=== PATIENT | female | born 1975 | race Caucasian/White ===

== ENCOUNTER 2018-07-26 21:36 | Inpatient (IN) | payer OTHER ==
[2018-07-26 23:47] LABS: Glucose,Whole Blood 98 mg/dL (75-99)
[2018-07-27] MEDS ORDERED: SODIUM CHLORIDE 0.9% 1,000 ML IV SCH (00:30)
[2018-07-27] MEDS ORDERED: ALPRAZolam 0.25 MG TAB PO PRN (00:32)
[2018-07-27 00:33] LABS: Anisocytosis Moderate; Hypochromasia Marked; MCH 20.9 pg (25.0-35.0); MCHC 28.7 g/dL (31.0-37.0); MCV 72.6 fL (80.0-100.0); Mean Platelet Volume 7.8; Microcytosis Marked; Platelet Count 374 k/uL (150-450); Poikilocytosis Marked; RBC 2.57 m/uL (3.80-5.40); RDW 23.2 % (11.5-15.5)
[2018-07-27 00:42] LABS: ALT 21 U/L (9-52); AST 22 U/L (14-36); Albumin 3.7 g/dL (3.5-5.0); Alkaline Phosphatase 63 U/L (38-126); Anion Gap 8 mmol/L; Blood Urea Nitrogen 11 mg/dL (7-17); Calcium 8.9 mg/dL (8.4-10.2); Carbon Dioxide 21 mmol/L (22-30); Chloride 109 mmol/L (98-107); Glucose 90 mg/dL (74-99); Potassium 3.9 mmol/L (3.5-5.1); Sodium 138 mmol/L (137-145); Total Protein 6.5 g/dL (6.3-8.2)
[2018-07-27] MEDS: ACETAMINOPHEN TAB 325 MG TAB PO PRN (01:17)
[2018-07-27 01:18] LABS: HCT 18.7 % (34.0-46.0); HGB 5.4 gm/dL (11.4-16.0)
[2018-07-27] MEDS ORDERED: FUROSEMIDE 10 MG/ML 2 ML VIAL IV ONE (02:00)
[2018-07-27 05:11] LABS: Band Neutrophils % 1 %; Monocytes # (M) 0.34 k/uL (0-1.0); Neutrophils % (M) 71 %; Nucleated Red Blood Cells 2 /100 WBC (0-0); Total Cells Counted 200
[2018-07-27 05:12] LABS: Lymphocytes # (M) 1.61 k/uL (1.0-4.8); WBC 6.7 k/uL (3.8-10.6)
[2018-07-27 05:15] LABS: Mixed Population RBC Present; Polychromasia Present
[2018-07-27] MEDS: LEVOTHYROXINE 112 MCG TAB PO SCH (06:07)
--- NOTE | 2018-07-27 07:47 | P.HPIM ---
History of Present Illness This is a pleasant 41 years old female who presents because of severe anemia and prolonged history of vaginal bleeding. Patient originally admitted to [facility] with low hemoglobin around 3.1-3.6. She was in the ICU. However there was no [facility] service and patient eventually transferred to [facility]. Patient states that she has prolonged history of menstrual irregularity and bleeding per vagina since she was age 16. At that time they started her on pills which help control her. Even before become sexually active. She is a mother of 2, last one was about 2 years old. Since then she has IUD, which was removed by her door maker due to hives she was experiencing for 3 months following that she didn't have a period, and her doctor could not prescribe her OCP because she was smoking cigarettes. Over the last 5-6 months patient started to having irregular menstrual periods for example she was bleeding the hole March, and the toe continued to bleed with this portends as an average like once or twice a week with merely large clots. Patient could not follow up with medical [facility] because she lost her job and her insurance. And she got her insurance back recently. Patient also was experiencing exertional dyspnea mostly related to her severe anemia which got worse over the last week. Her last episode of the bleeding was about 2-3 days prior to admission. She has few spotting one day prior to admission. However she become more and severely dyspneic on minimal exertion and she decided to come to emergency room. At [facility] her hemoglobin find to be 3.6, and repeat one was 3.1. Patient received 4 units of blood transfusion. Her repeat hemoglobin is 5.4. Risks of CBC within normal including platelets. INR was within normal limits at [facility], BMP was unremarkable. Vitas is stable, afebrile Review of Systems CONSTITUTIONAL: No fever, no malaise, no fatigue. HEENT: No recent visual problems or hearing problems. Denied any sore throat. CARDIOVASCULAR: No orthopnea, PND, no palpitations, no syncope. PULMONARY: No shortness of breath, no cough, no hemoptysis. GASTROINTESTINAL: No diarrhea, no nausea, no vomiting, no abdominal pain. Normoactive bowel sounds. NEUROLOGICAL: No headaches, no weakness, no numbness. HEMATOLOGICAL: Denies any bleeding or petechiae. GENITOURINARY: Denies any burning micturition, frequency, or urgency. MUSCULOSKELETAL/RHEUMATOLOGICAL: Denies any joint pain, swelling, or any muscle pain. ENDOCRINE: Denies any polyuria or polydipsia. Past Medical History Past Medical History: Thyroid Disorder Additional Past Medical History / Comment(s): Uterine bleeding History of Any Multi-Drug Resistant Organisms: None Reported Additional Past Surgical History / Comment(s): LEAP procedure Past Anesthesia/Blood Transfusion Reactions: No Reported Reaction Past Psychological History: No Psychological Hx Reported Smoking Status: Former smoker Past Alcohol Use History: Occasional Past Drug Use History: Marijuana - Past Family History Father Family Medical History: Hypertension, Myocardial Infarction ([place]) Additional Family Medical History / Comment(s): Aneurism Medications and Allergies Home Medications Medication Instructions Recorded Confirmed Type Levothyroxine Sodium [Levoxyl] 112 mcg PO DAILY 07/27/18 07/27/18 History Allergies Allergy/AdvReac Type Severity Reaction Status Date / Time No Known Allergies Allergy Verified 07/26/18 23:28 Physical Exam Vitals: Vital Signs Temp Pulse Resp BP Pulse Ox 07/27/18 06:11 97.7 F 66 10 L 107/67 07/27/18 06:01 97.5 F L 66 13 118/76 07/27/18 05:50 97.5 F L 76 10 L 112/70 07/27/18 05:00 69 5 L 94/55 95 07/27/18 04:08 98.3 F 78 17 94/55 07/27/18 04:00 98.3 F 73 17 111/60 97 07/27/18 03:38 98.0 F 84 11 L 111/60 07/27/18 03:30 85 8 L 105/63 97 07/27/18 03:28 98.1 F 85 14 105/63 07/27/18 03:00 86 17 07/27/18 02:30 91 22 07/27/18 02:00 88 17 115/59 07/27/18 01:30 86 17 124/68 07/27/18 01:00 78 9 L 131/79 98 07/27/18 00:30 85 11 L 118/71 99 07/27/18 00:00 98.2 F 84 10 L 130/72 97 Intake and Output 07/26/18 07/26/18 07/27/18 14:59 22:59 06:59 Intake Total 430 Output Total 300 Balance 130 Intake: IV 120 Sodium Chloride 0.9% 1, 120 000 ml @ 20 mls/hr IV . Q24H [facility] Rx#:[id number] Blood Product 310 Rc As-1 Unit 0 [id number] Rc Pheresis 2 As3 Unit 310 [id number] Output: Urine 300 Other: Voiding Method Toilet Weight 77.9 kg GENERAL: The patient is alert and oriented x3, not in any acute distress. Well developed, well nourished. HEENT: Pupils are round and equally reacting to light. EOMI. No scleral icterus. No conjunctival pallor. Normocephalic, atraumatic. No pharyngeal erythema. No thyromegaly. CARDIOVASCULAR: S1 and S2 present. No murmurs, rubs, or gallops. PULMONARY: Chest is clear to auscultation, no wheezing or crackles. ABDOMEN: Soft, nontender, nondistended, normoactive bowel sounds. No palpable organomegaly. MUSCULOSKELETAL: No joint swelling or deformity. EXTREMITIES: No cyanosis, clubbing, or pedal edema. NEUROLOGICAL: Gross neurological examination did not reveal any focal deficits. SKIN: No rashes. Results CBC & Chem 7: 07/27/18 00:20 07/27/18 00:20 Labs: Abnormal Lab Results - Last 24 Hours (Table) 07/27/18 07/27/18 07/27/18 Range/Units 00:15 00:20 00:20 RBC 2.57 L (3.80-5.40) m/uL Hgb 5.4 L* (11.4-16.0) gm/dL Hct 18.7 L* (34.0-46.0) % MCV 72.6 L (80.0-100.0) fL MCH 20.9 L (25.0-35.0) pg MCHC 28.7 L (31.0-37.0) g/dL RDW 23.2 H (11.5-15.5) % Nucleated RBCs 2 H (0-0) /100 WBC Chloride 109 H (98-107) mmol/L Carbon Dioxide 21 L (22-30) mmol/L Crossmatch See Detail Thrombosis Risk Factor Assmnt - Choose All That Apply Each Factor Represents 1 point: Age 41-60 years Thrombosis Risk Factor Assessment Total Risk Factor Score: 1 Thrombosis Risk Factor Assessment Level: Low Risk Assessment and Plan Assessment: Prolonged irregular vaginal bleeding Severe anemia on admission mostly acute blood loss anemia Exertional dyspnea, mostly related to above. Resolving History of cigarette smoking, quit about 6 weeks prior to admission as per patient. History of hypothyroidism Plan: This is a pleasant 43 years old female who presents because of severe anemia secondary to vaginal bleeding. [employer] consult. Critical care consult. Transfuse blood as needed. Keep hemoglobin more than 7. Start iron pills. Labs and medication were reviewed.. Continue same treatment. Continue with symptomatic treatment. Resume home medication. Monitor lytes and vitals. DVT and GI prophylaxis. Further recommendations of the clinical course of the patient DVT prophylaxis: non heparin and in view of severe anemia and bleeding GI Prophylaxis: Protonix Prognosis is guarded
[2018-07-27] MEDS ORDERED: PANTOPRAZOLE 40 MG/10 ML VIAL IV SCH (09:00)
--- NOTE | 2018-07-27 09:55 | XR ---
EXAMINATION TYPE: XR chest 1V DATE OF EXAM: 07/27/2018 COMPARISON: NONE HISTORY: Dyspnea TECHNIQUE: Single frontal view of the chest is obtained. FINDINGS: There is no focal air space opacity, pleural effusion, or pneumothorax seen. The cardiac silhouette size is within normal limits. The osseous structures are intact. There are overlying car diac leads. IMPRESSION: No acute process.
--- NOTE | 2018-07-27 10:50 | US ---
EXAMINATION TYPE: US transvaginal DATE OF EXAM: 07/27/2018 COMPARISON: NONE CLINICAL HISTORY: uterine bleeding. TECHNIQUE: . Transvaginal sonographic images of the pelvis were acquired. Date of LMP: About 5 months ago EXAM MEASUREMENTS: Uterus: 7.7 x 4.0 x 4.9 cm Endometrial Stripe: Not well-defined. Right Ovary: 3.5 x 2.8 x 2.1 cm Left Ovary: 2.0 x 1.7 x 1.3 cm 1. Uterus: Anteverted Heterogeneous echotexture 2. Endometrium: Suggestion of possible thickening 3. Right Ovary: Cystic area visualized measuring 2.8 x 1.6 x 1.6 cm, minimal septation may be presen t may be artifactual 4. Left Ovary: Multiple echogenic foci visualized 5. Bilateral Adnexa: wnl 6. Posterior cul-de-sac: wnl Grayscale, color Doppler imaging performed. IMPRESSION: Endometrial stripe thickness is not well-defined and may be increased, MRI could be perfo rmed for better evaluation. There may be underlying fibroid uterus. Consider biopsy. Right ovarian cy stic lesion, consider follow-up.
[2018-07-27 11:02] VITALS: BMI 31.4
[2018-07-27 11:46] LABS: INR 0.9 (<1.2); Prothrombin Time 10.1 sec (9.0-12.0)
[2018-07-27 11:48] LABS: ALT 14 U/L (9-52); AST 20 U/L (14-36); Albumin 3.7 g/dL (3.5-5.0); Alkaline Phosphatase 55 U/L (38-126); Anion Gap 7 mmol/L; Blood Urea Nitrogen 12 mg/dL (7-17); Calcium 8.6 mg/dL (8.4-10.2); Carbon Dioxide 24 mmol/L (22-30); Chloride 108 mmol/L (98-107); Glucose 85 mg/dL (74-99); Magnesium 2.2 mg/dL (1.6-2.3); Phosphorus 3.4 mg/dL (2.5-4.5); Potassium 4.1 mmol/L (3.5-5.1); Sodium 139 mmol/L (137-145); Total Bilirubin 1.6 mg/dL (0.2-1.3); Total Protein 6.6 g/dL (6.3-8.2)
[2018-07-27 11:55] LABS: Anisocytosis Moderate; HCT 25.2 % (34.0-46.0); Hypochromasia Marked; MCH 23.8 pg (25.0-35.0); MCHC 31.2 g/dL (31.0-37.0); MCV 76.2 fL (80.0-100.0); Mean Platelet Volume 7.1; Microcytosis Moderate; Platelet Count 391 k/uL (150-450); Poikilocytosis Marked; RBC 3.31 m/uL (3.80-5.40)
--- NOTE | 2018-07-27 11:56 | P.CNPUL ---
History of Present Illness Consult date: 07/27/18 Requesting physician: Kenton Nance Reason for consult: dyspnea (Critical care management) Chief complaint: Vaginal bleeding, shortness of breath History of present illness: This is a very pleasant 43-year-old female patient who has a history of hypothyroidism, previous smoker, occasional marijuana use. She also has a history of abnormal uterine bleeding and she was unable to be on oral control pills because she was smoking at that time. She had a intrauterine device placed and subsequently removed by her care transition mgr after developing hives. Following removal she did not have a period for 3 months. Recently she did start having episodes of large clots. She had not been following with the physician due to loss of insurance. She continued to have episodes of bleeding and subsequently developed significant dyspnea on minimal exertion and presented to [facility] yesterday for the same. She was found to have a hemoglobin of 3.6 and 3.1 and was admitted to the intensive care unit there. She received 2 units of packed red blood cells. There is no animal surgeon on staff there and she was subsequently transferred here to the intensive care unit. The hemoglobin was 5.4 and she has received 2 more units of packed red blood cells. He is seen today in consultation. She is awake and alert in no acute distress. She states she is much less short of breath following her blood transfusions. She is stronger and his minimal bleeding currently. She is maintaining good O2 saturations in the upper 90s on room air. She's been afebrile. Hemodynamically stable. No chest pain or palpitations. She did receive 20 mg of IV Lasix following the blood transfusion. She has 0.9 normal saline at 20 ML's per hour. Chest x-ray reveals no acute pulmonary process. Transvaginal ultrasound revealed endometrial stripe thickness is not well defined and maybe increase. There may be underlying fibroid uterus. Right ovarian cystic lesion. Gynecology consult pending. Follow-up hemoglobin pending. Review of Systems Constitutional: Reports weakness Eyes: denies blurred vision, denies decreased vision Ears: deny: decreased hearing Ears, nose, mouth and throat: Denies headache, Denies sore throat Cardiovascular: Reports dyspnea on exertion, Reports shortness of breath Respiratory: Reports dyspnea Gastrointestinal: Reports bloating Genitourinary: Reports abnormal vaginal bleeding Menstruation: Reports period heavy Musculoskeletal: Denies myalgias Integumentary: Denies pruritus, Denies rash Neurological: Denies numbness, Denies weakness Psychiatric: Denies anxiety, Denies depression Endocrine: Denies fatigue, Denies weight change Hematologic/Lymphatic: Reports as per HPI Allergic/Immunologic: Reports as per HPI Past Medical History Past Medical History: Thyroid Disorder Additional Past Medical History / Comment(s): Uterine bleeding History of Any Multi-Drug Resistant Organisms: None Reported Additional Past Surgical History / Comment(s): IUD implant and subsequent removal, LEEP procedure Past Anesthesia/Blood Transfusion Reactions: No Reported Reaction Past Psychological History: No Psychological Hx Reported Smoking Status: Former smoker Past Alcohol Use History: Occasional Past Drug Use History: Marijuana - Past Family History Father Family Medical History: Hypertension, Myocardial Infarction ([place]) Additional Family Medical History / Comment(s): Aneurism Medications and Allergies Home Medications Medication Instructions Recorded Confirmed Type Acetaminophen Tab [Tylenol] 350 mg PO Q8HR 07/27/18 07/27/18 History Levothyroxine Sodium [Levoxyl] 112 mcg PO DAILY 07/27/18 07/27/18 History Multivitamins, Thera [Multivitamin 1 tab PO DAILY 07/27/18 07/27/18 History (formulary)] Ranitidine HCl [Zantac] 75 mg PO DAILY 07/27/18 07/27/18 History Allergies Allergy/AdvReac Type Severity Reaction Status Date / Time No Known Allergies Allergy Verified 07/27/18 07:47 Physical Exam Vitals: Vital Signs Temp Pulse Resp BP Pulse Ox 07/27/18 10:00 68 17 114/71 97 07/27/18 09:00 78 16 109/79 97 07/27/18 08:20 98.2 F 75 11 L 108/79 98 07/27/18 08:10 75 19 114/75 99 07/27/18 08:00 71 19 125/85 99 07/27/18 07:50 75 12 125/85 98 07/27/18 07:40 71 18 120/75 98 07/27/18 07:30 79 12 119/66 98 07/27/18 07:20 93 16 85/69 97 07/27/18 07:10 70 15 101/59 96 07/27/18 07:00 64 16 106/64 96 07/27/18 06:41 97.9 F 69 17 106/64 07/27/18 06:11 97.7 F 66 10 L 107/67 07/27/18 06:01 97.5 F L 66 13 118/76 07/27/18 06:00 67 30 H 121/80 97 07/27/18 05:50 97.5 F L 76 10 L 112/70 07/27/18 05:00 69 5 L 94/55 95 07/27/18 04:08 98.3 F 78 17 94/55 07/27/18 04:00 98.3 F 73 17 111/60 97 07/27/18 03:38 98.0 F 84 11 L 111/60 07/27/18 03:30 85 8 L 105/63 97 07/27/18 03:28 98.1 F 85 14 105/63 07/27/18 03:00 86 17 07/27/18 02:30 91 22 07/27/18 02:00 88 17 115/59 07/27/18 01:30 86 17 124/68 07/27/18 01:00 78 9 L 131/79 98 07/27/18 00:30 85 11 L 118/71 99 07/27/18 00:00 98.2 F 84 10 L 130/72 97 Intake and Output 07/26/18 07/27/18 07/27/18 22:59 06:59 14:59 Intake Total 450 1021 Output Total 1600 600 Balance -1150 421 Intake: IV 140 60 Sodium Chloride 0.9% 1, 140 60 000 ml @ 20 mls/hr IV . Q24H [facility] Rx#:[id number] Oral 300 Blood Product 310 661 As-1 Unit 0 310 [id number] Rc Pheresis 2 As3 Unit 310 [id number] Output: Urine 1600 600 Other: Voiding Method Toilet Toilet Weight 77.9 kg 77.9 kg - Constitutional General appearance: average body habitus, no acute distress - EENT Eyes: EOMI, PERRLA ENT: hearing grossly normal Ears: bilateral: normal - Neck Neck: normal ROM Carotids: bilateral: upstroke normal Thyroid: bilateral: normal size - Respiratory Respiratory: bilateral: CTA - Cardiovascular Rhythm: regular Heart sounds: normal: S1, S2 - Gastrointestinal General gastrointestinal: normal bowel sounds - Integumentary Integumentary: normal turgor - Neurologic Neurologic: CNII-XII intact - Musculoskeletal Musculoskeletal: generalized weakness - Psychiatric Psychiatric: A&O x's 3, appropriate affect, intact judgment & insight Results - Laboratory Findings CBC and BMP: 07/27/18 00:20 07/27/18 00:20 Abnormal lab findings: Abnormal Labs 07/27/18 07/27/18 07/27/18 00:15 00:20 00:20 RBC 2.57 L Hgb 5.4 L* Hct 18.7 L* MCV 72.6 L MCH 20.9 L MCHC 28.7 L RDW 23.2 H Nucleated RBCs 2 H Chloride 109 H Carbon Dioxide 21 L Crossmatch See Detail - Diagnostic Findings Chest x-ray: image reviewed (No acute pulmonary process) Assessment and Plan Assessment: Impression: #1 Abnormal vaginal bleeding of unclear etiology. History of IUD and subsequent removal. History of LEEP procedure. #2 Acute anemia secondary to above. Status post 4 units packed red blood cell transfusion. Follow-up hemoglobin pending. #3 Hypothyroidism. #4 Remote history of chronic tobacco dependence. #5 Marijuana use. Plan: The patient was seen and evaluated by Dr. Gonzalez. She is currently stable from the pulmonary and critical care standpoint. He was dynamically stable. Not requiring pressor support. When she is seen by gynecological services she'll be transferred out of the intensive care unit. Follow-up hemoglobin pending. We'll continue to follow and make further recommendations based on her clinical status. I, the cosigning physician, performed a history & physical examination of the patient. Lungs sounds are clear. Maintaining good O2 saturations in the 90s on room air. I discussed the assessment and plan of care with my nurse practitioner, Mimi Mason. I attest to the above note as dictated by her. Time with Patient: Greater than 30
[2018-07-27 11:58] LABS: HGB 7.9 gm/dL (11.4-16.0)
--- NOTE | 2018-07-27 13:04 | P.OBCN ---
History of Present Illness Consult date: 07/27/18 Reason for consult: menorrhagia Chief complaint: Fatigue, shortness of breath, and dysfunctional uterine bleeding History of present illness: This patient is a 43-year-old 2 para [address] patient of [address] Webb's from [facility] with a approximately 1-1/2 year history of dysfunctional uterine bleeding. Patient states that she had her last baby approximately 2 years ago and she had a Mirena IUD placed. Patient was having spotting and bleeding on and off with the IUD and Dr. Webb then removed IUD. Patient did not have a period for approximately 3 months after this, but then began having intermittent heavy bleeding. Patient states that she did discuss a possible endometrial ablation with Dr. Webb at this time. There was however a lapse in her insurance. Patient states that she has intermittent heavy bleeding. She knew that she was anemic and went to the health department and at that time they checked her hemoglobin and it was low and they told her to go to [facility]. Patient was admitted there are with a hemoglobin in the 3-4 range and given 2 units of blood. She was subsequently transferred to the [facility] for further evaluation and treatment. Patient's hemoglobin here on admission was 5.4 and she has subsequent received 2 units of blood and is now 7.9. She is not having a lot of vaginal bleeding at this time just a small amount of dark red blood. Pelvic ultrasound is done which shows a not well defined endometrial stripe but may be increased. She has a physiologic 2.8 cm cyst in the right ovary. Patient's past gynecologic history is significant for 2 vaginal deliveries the last one approximately [address] [facility]. She also had a LEEP of the cervix in the remote past as well. Review of Systems Genitourinary: Reports as per HPI, Reports abnormal vaginal bleeding Menstruation: Reports as per HPI Past Medical History Past Medical History: Thyroid Disorder Additional Past Medical History / Comment(s): Uterine bleeding History of Any Multi-Drug Resistant Organisms: None Reported Additional Past Surgical History / Comment(s): IUD implant and subsequent removal, LEEP procedure Past Anesthesia/Blood Transfusion Reactions: No Reported Reaction Past Psychological History: No Psychological Hx Reported Smoking Status: Former smoker Past Alcohol Use History: Occasional Past Drug Use History: Marijuana - Past Family History Father Family Medical History: Hypertension, Myocardial Infarction ([place]) Additional Family Medical History / Comment(s): Aneurism Medications and Allergies Home Medications Medication Instructions Recorded Confirmed Type Acetaminophen Tab [Tylenol] 350 mg PO Q8HR 07/27/18 07/27/18 History Levothyroxine Sodium [Levoxyl] 112 mcg PO DAILY 07/27/18 07/27/18 History Multivitamins, Thera [Multivitamin 1 tab PO DAILY 07/27/18 07/27/18 History (formulary)] Ranitidine HCl [Zantac] 75 mg PO DAILY 07/27/18 07/27/18 History Allergies Allergy/AdvReac Type Severity Reaction Status Date / Time No Known Allergies Allergy Verified 07/27/18 07:47 Exam Vital Signs Temp Pulse Resp BP Pulse Ox 07/27/18 12:00 98.4 F 70 18 122/82 98 07/27/18 11:00 72 19 119/71 97 07/27/18 10:00 68 17 114/71 97 07/27/18 09:00 78 16 109/79 97 07/27/18 08:20 98.2 F 75 11 L 108/79 98 07/27/18 08:10 75 19 114/75 99 07/27/18 08:00 71 19 125/85 99 07/27/18 07:50 75 12 125/85 98 07/27/18 07:40 71 18 120/75 98 07/27/18 07:30 79 12 119/66 98 07/27/18 07:20 93 16 85/69 97 07/27/18 07:10 70 15 101/59 96 07/27/18 07:00 64 16 106/64 96 07/27/18 06:41 97.9 F 69 17 106/64 07/27/18 06:11 97.7 F 66 10 L 107/67 07/27/18 06:01 97.5 F L 66 13 118/76 07/27/18 06:00 67 30 H 121/80 97 07/27/18 05:50 97.5 F L 76 10 L 112/70 07/27/18 05:00 69 5 L 94/55 95 07/27/18 04:08 98.3 F 78 17 94/55 07/27/18 04:00 98.3 F 73 17 111/60 97 07/27/18 03:38 98.0 F 84 11 L 111/60 07/27/18 03:30 85 8 L 105/63 97 07/27/18 03:28 98.1 F 85 14 105/63 07/27/18 03:00 86 17 07/27/18 02:30 91 22 07/27/18 02:00 88 17 115/59 07/27/18 01:30 86 17 124/68 07/27/18 01:00 78 9 L 131/79 98 07/27/18 00:30 85 11 L 118/71 99 07/27/18 00:00 98.2 F 84 10 L 130/72 97 Intake and Output 07/26/18 07/27/18 07/27/18 22:59 06:59 14:59 Intake Total 450 1021 Output Total 1600 600 Balance -1150 421 Intake: IV 140 60 Sodium Chloride 0.9% 1, 140 60 000 ml @ 20 mls/hr IV . Q24H [facility] Rx#:[id number] Oral 300 Blood Product 310 661 Rc As-1 Unit 0 310 [id number] Rc Pheresis 2 As3 Unit 310 [id number] Output: Urine 1600 600 Other: Voiding Method Toilet Toilet Weight 77.9 kg 77.9 kg Patient is in the ICU and therefore pelvic exam is not performed. I did look at the patient's perineum and she has a pad on which has a scant amount of dark red blood. The nurse informs me that she's gone through 1 pad all morning long. Results Result Diagrams: 07/27/18 10:37 07/27/18 10:37 Abnormal Lab Results - Last 24 Hours (Table) 07/27/18 07/27/18 07/27/18 Range/Units 00:15 00:20 00:20 RBC 2.57 L (3.80-5.40) m/uL Hgb 5.4 L* (11.4-16.0) gm/dL Hct 18.7 L* (34.0-46.0) % MCV 72.6 L (80.0-100.0) fL MCH 20.9 L (25.0-35.0) pg MCHC 28.7 L (31.0-37.0) g/dL RDW 23.2 H (11.5-15.5) % Nucleated RBCs 2 H (0-0) /100 WBC Chloride 109 H (98-107) mmol/L Carbon Dioxide 21 L (22-30) mmol/L Total Bilirubin (0.2-1.3) mg/dL Crossmatch See Detail 07/27/18 07/27/18 Range/Units 10:37 10:37 RBC 3.31 L (3.80-5.40) m/uL Hgb 7.9 L D (11.4-16.0) gm/dL Hct 25.2 L (34.0-46.0) % MCV 76.2 L (80.0-100.0) fL MCH 23.8 L (25.0-35.0) pg MCHC (31.0-37.0) g/dL RDW 21.0 H (11.5-15.5) % Nucleated RBCs (0-0) /100 WBC Chloride 108 H (98-107) mmol/L Carbon Dioxide (22-30) mmol/L Total Bilirubin 1.6 H (0.2-1.3) mg/dL Crossmatch Assessment and Plan Assessment: It is my impression that this is a pleasant 43-year-old 2 para 2 female with what appears to be chronic dysfunctional bleeding and secondary anemia. Patient is not acutely bleeding at this time and she is responded appropriately to blood transfusion. Patient has been here since midnight last night without significant bleeding. Patient is already established with Dr. Webb and she has discussed possible surgical intervention via an endometrial ablation. She and I also discussed hormonal treatment at this time, she states that she is no longer smoking. I'm still not comfortable placing her on oral contraceptives however we did discuss progesterone therapy and she would like to go on Provera at this time. I recommended that she get an endometrial biopsy as an outpatient and then she should strongly consider proceeding with an endometrial ablation. She would have to do something reliable for control and have a normal endometrial biopsy if she chose this method of treatment. Hysterectomy is not indicated at this time because she has not tried any other less invasive procedures, however if she fails other conservative treatments this certainly would have to be considered. Patient has indicated to me that she will follow up with Dr. Webb as an outpatient, obviously she is always welcome to follow- up with us if necessary. We are going to start Provera 10 mg by mouth daily and she should continue this as an outpatient. I would suggest follow-up with her primary CHARGE ENTRY within the next 7 days to arrange an endometrial biopsy and further treatment. Thank you very much for this consultation. (1) Dysfunctional uterine bleeding Current Visit: Yes Status: Acute Code(s): N93.8 - OTHER SPECIFIED ABNORMAL UTERINE AND VAGINAL BLEEDING SNOMED Code(s): 45145587 (2) Chronic anemia Current Visit: Yes Status: Acute Code(s): D64.9 - ANEMIA, UNSPECIFIED SNOMED Code(s): 035234359
[2018-07-27 14:05] LABS: Band Neutrophils % 5 %; Basophils # (M) 0.06 k/uL (0-0.2); Eosinophils # (M) 0.19 k/uL (0-0.7); Metamyelocytes # (M) 0.06 k/uL (0); Metamyelocytes % 1 %; Monocytes # (M) 0.19 k/uL (0-1.0); Myelocytes # (M) 0.06 k/uL (0); Myelocytes % 1 %; Neutrophils % (M) 67 %; Nucleated Red Blood Cells 2 /100 WBC (0-0); Total Cells Counted 200
[2018-07-27 14:06] LABS: WBC 6.2 k/uL (3.8-10.6)
[2018-07-27] MEDS: medroxyPROGESTERone 10 MG TABLET PO SCH ×2 (15:11→16:35)
[2018-07-27] MEDS: FERROUS SULFATE 325 MG TAB PO SCH (17:36)
[2018-07-27 20:20] LABS: Anisocytosis Moderate; HCT 24.3 % (34.0-46.0); HGB 7.8 gm/dL (11.4-16.0); Hypochromasia Marked; MCH 24.4 pg (25.0-35.0); MCHC 32.1 g/dL (31.0-37.0); MCV 75.9 fL (80.0-100.0); Mean Platelet Volume 7.8; Microcytosis Marked; Platelet Count 379 k/uL (150-450); Poikilocytosis Marked; RBC 3.21 m/uL (3.80-5.40); RDW 21.5 % (11.5-15.5); WBC 6.7 k/uL (3.8-10.6)
[2018-07-28 02:59] LABS: Anisocytosis Moderate; HCT 25.4 % (34.0-46.0); HGB 7.7 gm/dL (11.4-16.0); Hypochromasia Marked; MCH 22.9 pg (25.0-35.0); MCHC 30.2 g/dL (31.0-37.0); MCV 75.7 fL (80.0-100.0); Microcytosis Marked; Platelet Count 359 k/uL (150-450); Poikilocytosis Marked; RBC 3.36 m/uL (3.80-5.40); RDW 21.8 % (11.5-15.5); WBC 7.7 k/uL (3.8-10.6)
[2018-07-28] MEDS: LEVOTHYROXINE 112 MCG TAB PO SCH (07:26)
[2018-07-28] MEDS: PANTOPRAZOLE 40 MG TABLET PO SCH (07:27)
[2018-07-28] MEDS: FERROUS SULFATE 325 MG TAB PO SCH ×2 (08:28→18:02)
[2018-07-28 08:41] LABS: Anisocytosis Moderate; HCT 26.2 % (34.0-46.0); HGB 7.8 gm/dL (11.4-16.0); Hypochromasia Marked; MCHC 29.9 g/dL (31.0-37.0); MCV 76.9 fL (80.0-100.0); Mean Platelet Volume 7.9; Microcytosis Moderate; Platelet Count 362 k/uL (150-450); Poikilocytosis Marked; RBC 3.41 m/uL (3.80-5.40); RDW 21.4 % (11.5-15.5); WBC 7.2 k/uL (3.8-10.6)
[2018-07-28] MEDS: medroxyPROGESTERone 10 MG TABLET PO SCH (09:18)
[2018-07-28 09:23] LABS: Albumin 3.6 g/dL (3.5-5.0); Anion Gap 8 mmol/L; Blood Urea Nitrogen 15 mg/dL (7-17); Carbon Dioxide 22 mmol/L (22-30); Chloride 111 mmol/L (98-107); Glucose 110 mg/dL (74-99); Potassium 3.9 mmol/L (3.5-5.1); Sodium 141 mmol/L (137-145); Total Protein 6.4 g/dL (6.3-8.2)
[2018-07-28 09:24] LABS: ALT 17 U/L (9-52); AST 15 U/L (14-36); Alkaline Phosphatase 56 U/L (38-126); Calcium 8.7 mg/dL (8.4-10.2); Total Bilirubin 0.3 mg/dL (0.2-1.3)
--- NOTE | 2018-07-28 10:18 | P.PN ---
Subjective This is a pleasant 41 years old female who presents because of severe anemia and prolonged history of vaginal bleeding. Patient originally admitted to [facility] with low hemoglobin around 3.1-3.6. She was in the ICU. However there was no JOINER service and patient eventually transferred to [facility]. Patient states that she has prolonged history of menstrual irregularity and bleeding per vagina since she was age 16. At that time they started her on pills which help control her. Even before become sexually active. She is a mother of 2, last one was about 2 years old. Since then she has IUD, which was removed by her ux developer designer due to hives she was experiencing for 3 months following that she didn't have a period, and her doctor could not prescribe her OCP because she was smoking cigarettes. Over the last 5-6 months patient started to having irregular menstrual periods for example she was bleeding the hole March, and the toe continued to bleed with this portends as an average like once or twice a week with merely large clots. Patient could not follow up with [facility] because she lost her job and her insurance. And she got her insurance back recently. Patient also was experiencing exertional dyspnea mostly related to her severe anemia which got worse over the last week. Her last episode of the bleeding was about 2-3 days prior to admission. She has few spotting one day prior to admission. However she become more and severely dyspneic on minimal exertion and she decided to come to emergency room. At [facility] her hemoglobin find to be 3.6, and repeat one was 3.1. Patient received 4 units of blood transfusion. Her repeat hemoglobin is 5.4. Risks of CBC within normal including platelets. INR was within normal limits at [facility], BMP was unremarkable. Vitas is stable, afebrile 07/28/2018 Patient is resting in bed comfortably, she was transferred out of the ICU yesterday. She still have some vaginal spotting. No nausea vomiting, chest pain or dyspnea. His hemoglobin is 7.8 today. JOINER consult is appreciated. They started her on hormonal therapy with progesterone with a recommendation for outpatient follow-up with Dr. Webb who is her ux developer designer with a recommendation for history and ablation, rather than more aggressive therapies like hysterectomy for now. Patient has constipation Objective - Vital Signs Vital signs: Vital Signs Temp 97.9 F 07/28/18 08:01 Pulse 68 12/15/18 08:01 Resp 16 07/28/18 08:01 BP 115/75 07/28/18 08:01 Pulse Ox 96 07/28/18 08:01 Intake & Output 07/27/18 07/28/18 07/28/18 18:59 06:59 18:59 Intake Total 1801 100 Output Total 1900 0 Balance -99 100 Weight 77.9 kg Intake: IV 140 Sodium Chloride 0.9% 1, 140 000 ml @ 20 mls/hr IV . Q24H [facility] Rx#:[id number] Oral 800 100 Blood Product 861 Rc As-1 Unit 310 [id number] Output: Urine 1900 0 Other: Voiding Method Toilet Toilet # Voids 1 - Exam GENERAL: The patient is alert and oriented x3, not in any acute distress. Well developed, well nourished. HEENT: Pupils are round and equally reacting to light. EOMI. No scleral icterus. No conjunctival pallor. Normocephalic, atraumatic. No pharyngeal erythema. No thyromegaly. CARDIOVASCULAR: S1 and S2 present. No murmurs, rubs, or gallops. PULMONARY: Chest is clear to auscultation, no wheezing or crackles. ABDOMEN: Soft, nontender, nondistended, normoactive bowel sounds. No palpable organomegaly. MUSCULOSKELETAL: No joint swelling or deformity. EXTREMITIES: No cyanosis, clubbing, or pedal edema. NEUROLOGICAL: Gross neurological examination did not reveal any focal deficits. SKIN: No rashes. - Labs CBC & Chem 7: 07/28/18 08:32 07/28/18 08:32 Labs: Abnormal Lab Results - Last 24 Hours (Table) 07/27/18 07/27/18 07/27/18 Range/Units 10:37 10:37 20:04 RBC 3.31 L 3.21 L (3.80-5.40) m/uL Hgb 7.9 L D 7.8 L (11.4-16.0) gm/dL Hct 25.2 L 24.3 L (34.0-46.0) % MCV 76.2 L 75.9 L (80.0-100.0) fL MCH 23.8 L 24.4 L (25.0-35.0) pg MCHC (31.0-37.0) g/dL RDW 21.0 H 21.5 H (11.5-15.5) % Metamyelocytes # (Man) 0.06 H (0) k/uL Myelocytes # (Manual) 0.06 H (0) k/uL Nucleated RBCs 2 H (0-0) /100 WBC Chloride 108 H (98-107) mmol/L Glucose (74-99) mg/dL Total Bilirubin 1.6 H (0.2-1.3) mg/dL 07/28/18 07/28/18 07/28/18 Range/Units 02:27 08:32 08:32 RBC 3.36 L 3.41 L (3.80-5.40) m/uL Hgb 7.7 L 7.8 L (11.4-16.0) gm/dL Hct 25.4 L 26.2 L (34.0-46.0) % MCV 75.7 L 76.9 L (80.0-100.0) fL MCH 22.9 L 23.0 L (25.0-35.0) pg MCHC 30.2 L 29.9 L (31.0-37.0) g/dL RDW 21.8 H 21.4 H (11.5-15.5) % Metamyelocytes # (Man) (0) k/uL Myelocytes # (Manual) (0) k/uL Nucleated RBCs (0-0) /100 WBC Chloride 111 H (98-107) mmol/L Glucose 110 H (74-99) mg/dL Total Bilirubin (0.2-1.3) mg/dL Assessment and Plan Assessment: Prolonged irregular vaginal bleeding, secondary to dysfunctional uterine bleeding Severe anemia on admission mostly acute blood loss anemia, status post blood transfusion. Improved Exertional dyspnea, mostly related to above. Resolving History of cigarette smoking, quit about 6 weeks prior to admission as per patient. History of hypothyroidism Plan: This is a pleasant 43 years old female who presents because of severe anemia secondary to vaginal bleeding. PUBLIC SPEAKING PROFESSOR consult. Critical care consult. Transfuse blood as needed. Keep hemoglobin more than 7. Start iron pills. Labs and medication were reviewed.. Continue same treatment. Continue with symptomatic treatment. Resume home medication. Monitor lytes and vitals. DVT and GI prophylaxis. Further recommendations of the clinical course of the patient DVT prophylaxis: non heparin and in view of severe anemia and bleeding GI Prophylaxis: Protonix Prognosis is guarded
[2018-07-28 18:06] LABS: Iron Saturation 2.28 (12.00-45.00)
[2018-07-28] MEDS: DOCUSATE 100 MG CAP PO PRN (18:19)
[2018-07-28] MEDS: ACETAMINOPHEN TAB 325 MG TAB PO PRN (20:03)
[2018-07-29 07:37] VITALS: RESP 16
[2018-07-29] MEDS: LEVOTHYROXINE 112 MCG TAB PO SCH (07:37)
[2018-07-29] MEDS: PANTOPRAZOLE 40 MG TABLET PO SCH (08:29)
[2018-07-29] MEDS: FERROUS SULFATE 325 MG TAB PO SCH ×2 (08:29→16:59)
[2018-07-29] MEDS: DOCUSATE 100 MG CAP PO PRN (08:30)
[2018-07-29 08:41] LABS: Anisocytosis Moderate; HCT 27.5 % (34.0-46.0); HGB 8.5 gm/dL (11.4-16.0); Hypochromasia Marked; MCH 24.1 pg (25.0-35.0); MCHC 30.9 g/dL (31.0-37.0); MCV 78.1 fL (80.0-100.0); Mean Platelet Volume 7.6; Microcytosis Marked; Platelet Count 381 k/uL (150-450); Poikilocytosis Marked; RBC 3.52 m/uL (3.80-5.40); RDW 23.4 % (11.5-15.5); WBC 6.3 k/uL (3.8-10.6)
[2018-07-29 08:58] LABS: Anion Gap 7 mmol/L; Blood Urea Nitrogen 14 mg/dL (7-17); Calcium 8.9 mg/dL (8.4-10.2); Carbon Dioxide 22 mmol/L (22-30); Chloride 112 mmol/L (98-107); Glucose 90 mg/dL (74-99); Potassium 4.4 mmol/L (3.5-5.1); Sodium 141 mmol/L (137-145)
[2018-07-29] MEDS: medroxyPROGESTERone 10 MG TABLET PO SCH (09:12)
[2018-07-29 12:33] VITALS: BP 118/75; PULSE 85; TEMP 98.1
--- NOTE | 2018-07-29 16:46 | P.DS ---
Providers Date of admission: 07/26/18 22:55 Attending physician: Kenton Nance MD Consults: 07/26/18 23:50 Consult Physician Routine Consulting Provider: Jeison Myers Consult Reason/Comments: Uterine Bleeding Do you want consulting provider notified?: Yes Placement Type Exists?: Yes Primary care physician: Stated None Hospital Course: Bedside nurse was present throughout the whole encounter including the examination. This is a pleasant 43 years old female who presents because of prolonged vaginal bleeding that felt to do follow-up because she lost her insurance over several months, on the presentation patient was have exertional dyspnea and severely anemic with hemoglobin 3.1-3.6. Patient received several units of blood transfusion i.e. 4 units. And her hemoglobin went up to 7.8 and then 8.5 today. Patient was started on iron pills. And prescription is provided for laxative. Patient did not have significant vaginal bleeding on presentation, however she has some minimal bleeding yesterday which almost stopped today except for a few splinting. [employer] Dr. Myers evaluated the patient and found she has dysfunctional uterine bleeding and start her on Provera progesterone pills with his recommendation to continue for 1-2 months at least and to follow up with her nail feeder Dr. Webb within one week for possible history and biopsy and history and ablation therapy. Patient informed by this recommendation and she agrees with them. Patient does not want to wait till tomorrow to make appointments. Patient states that she can't go home and she makes her on appointments. Patient looks reliable and going to do follow-up. I discussed the case with the nail feeder Dr. Myers, and he can be cleared the patient for discharge Problems and management plan was discussed with the patient in details and she verbalized understanding and acceptance As found stable and can be discharged home however she needs follow-up as an outpatient Gen: patient is a AAOx3, no distress CVS: S1-S2, RRR, no murmur Lungs: B/L CTA, no wheezing Abdomen: soft, no distention, no tenderness, positive bowel sounds gynecological exam: Deferred to the nail feeder. Extremity: no leg edema or induration Time spent more than 35 minutes Plan - Discharge Summary New Discharge Prescriptions: New Docusate [Colace] 100 mg PO BID PRN #14 cap PRN Reason: Constipation Ferrous Sulfate [Iron (65 MG Elemental)] 325 mg PO BID-W/MEALS #60 tab medroxyPROGESTERone [Provera] 10 mg PO DAILY #30 tablet Continue Levothyroxine Sodium [Levoxyl] 112 mcg PO DAILY Ranitidine HCl [Zantac] 75 mg PO DAILY Multivitamins, Thera [Multivitamin (formulary)] 1 tab PO DAILY Acetaminophen Tab [Tylenol] 350 mg PO Q8HR Discharge Medication List Acetaminophen Tab [Tylenol] 350 mg PO Q8HR 07/27/18 [History] Levothyroxine Sodium [Levoxyl] 112 mcg PO DAILY 07/27/18 [History] Multivitamins, Thera [Multivitamin (formulary)] 1 tab PO DAILY 07/27/18 [History ] Ranitidine HCl [Zantac] 75 mg PO DAILY 07/27/18 [History] Docusate [Colace] 100 mg PO BID PRN #14 cap 07/29/18 [Rx] Ferrous Sulfate [Iron (65 MG Elemental)] 325 mg PO BID-W/MEALS #60 tab 07/29/18 [Rx] medroxyPROGESTERone [Provera] 10 mg PO DAILY #30 tablet 07/29/18 [Rx] Follow up Appointment(s)/Referral(s): Jeison Myers MD [STAFF PHYSICIAN] - 1 Week Benjamin Webb DO [REFERRING] - 1 Week () Patient Instructions/Handouts: Iron Rich Diet (DC), Anemia (DC) Activity/Diet/Wound Care/Special Instructions: Resume previous diet Activity as tolerated Discharge Disposition: HOME SELF-CARE
== END 2018-07-29 17:10 | disposition home or self-care (01) | DRG 760 ==
LOC: 2SICU 22:55 → 6PED 07-27 22:28
PROVIDERS: ADMIT Internal Medicine; ATTEND Internal Medicine
PROC: 30233N1 Transfusion of Nonautologous Red Blood Cells into Peripheral Vein, Percutaneous Approach (ICD-10-PCS; principal; 2018-07-27)
DX: N92.0 Excessive and frequent menstruation with regular cycle (principal); D62 Acute posthemorrhagic anemia; E03.9 Hypothyroidism, unspecified; K59.00 Constipation, unspecified; N83.201 Unspecified ovarian cyst, right side; N93.8 Other specified abnormal uterine and vaginal bleeding; Z82.49 Family history of ischemic heart disease and other diseases of the circulatory system; Z87.891 Personal history of nicotine dependence; Z79.890 Hormone replacement therapy; D25.9 Leiomyoma of uterus, unspecified
CPT/HCPCS: 71045; 76830; 80048; 80053; 82728; 83540; 83550; 83735; 84100; 85025; 85027; 85610; 86850; 86900; 86901; 86920

== ENCOUNTER → 2020-08-24 | Outpatient (CLI) | payer OTHER ==
--- NOTE | 2020-09-01 10:24 | MM ---
Reason for exam: screening (asymptomatic). Last mammogram was performed 3 years ago. History: Patient history of other cancer and had first child at age 33. Took hormonal contraceptives for 5 years. Physical Findings: A clinical breast exam by your physician is recommended on an annual basis and results should be correlated with mammographic findings. MG 3D Screening Mammo W/Cad Bilateral CC and MLO view(s) were taken. Prior study comparison: August 16, 2017, mammogram, performed at [facility]. There are scattered fibroglandular densities. No significant changes when compared with prior studies. ASSESSMENT: Negative, BI-RAD 1 RECOMMENDATION: Routine screening mammogram of both breasts in 1 year.
== END | disposition home or self-care (01) ==
LOC: RADMAMWWP 11:16
PROVIDERS: ATTEND Family Medicine
DX: Z12.31 Encounter for screening mammogram for malignant neoplasm of breast (principal)
CPT/HCPCS: 77063; 77067

== ENCOUNTER → 2021-04-07 | Outpatient (CLI) | payer OTHER ==
--- NOTE | 2021-04-07 13:35 | CT ---
EXAMINATION TYPE: CT brain wo con DATE OF EXAM: 04/07/2021 COMPARISON: None HISTORY: headache CT DLP: 956.[address] of the brain was performed. The ventricles, basal cisterns and sulci overlying the cerebral convexities demonstrate a normal appe arance. There is no evidence for intracranial hemorrhage or sulcal effacement. No mass effects are seen. Osseous calvarium is intact. If symptoms persist consider MRI as clinically warranted. IMPRESSION: 1. No acute intracranial process is seen at this time.
== END | disposition home or self-care (01) ==
LOC: RADCTMAIN 12:54
PROVIDERS: ATTEND Family Medicine
DX: R51.9 Headache, unspecified (principal)
CPT/HCPCS: 70450

== ENCOUNTER → 2021-05-10 | Outpatient (CLI) | payer OTHER ==
--- NOTE | 2021-05-11 08:33 | MR ---
EXAMINATION TYPE: MR angio head wo con DATE OF EXAM: 05/10/2021 COMPARISON: CT brain April 07, 2021 HISTORY: Headache and family history of aneurysms. TECHNIQUE: Time of flight images focusing on the [place] were performed without contrast.. 2-D and 3-D postprocessing imaging is performed on MRI scanner. FINDINGS: Dominant left vertebral artery. Vertebral arteries are patent to the basilar junction. [place] nt bilateral posterior communicating arteries. No significant focal stenosis or aneurysmal change. Images of the anterior circulation show patent anterior communicating artery. No significant focal st enosis or aneurysm. IMPRESSION: No aneurysm at the level of the [place].
== END | disposition home or self-care (01) ==
LOC: RADMRIMAIN 20:11
PROVIDERS: ATTEND Family Medicine
DX: R51.9 Headache, unspecified (principal); Z82.49 Family history of ischemic heart disease and other diseases of the circulatory system
CPT/HCPCS: 70544

== ENCOUNTER → 2022-10-26 | Outpatient (CLI) | payer OTHER ==
--- NOTE | 2022-10-26 09:34 | US ---
EXAMINATION TYPE: US renal artery duplex complete DATE OF EXAM: 10/26/2022 COMPARISON: NONE CLINICAL HISTORY: 47 year old female I10 HTN. TECHNIQUE: Multiple sonographic images of the kidneys are obtained. Color Doppler and spectral wavefo rm analysis of the renal arteries. FINDINGS: MEASUREMENTS: Aorta peak systolic velocity: 65.8 cm/s. RENAL SIZE: Rt Kidney: 11.1 x 3.1 x 4.7cm Lt Kidney: 10.8 x 5.0 x 4.6cm No hydronephrosis on either side. RESISTANCE INDEX Right: 0.54 Left: 0.57 RA/AO RATIO (< 3.5 ) Right: 1.1 Left: 1.1 RA VELOCITY ( < 180 cm/s) Right: 95.6 Left: 96.6 IMPRESSION: No sonographic/Doppler evidence for renal artery stenosis on either side.
--- NOTE | 2022-10-26 18:27 | MM ---
Reason for Exam: Screening (asymptomatic). Last mammogram was performed 2 year(s) and 2 month(s) ago. Patient History: Menarche at age 12. First Full-Term at age 33. Late child-bearing (after 30). Hysterectomy at age 44. Other cancer. Patient used Hormonal Contraceptives for 5 years. Risk Values: Dee 5 year model risk: 1.3%. NCI Lifetime model risk: 14.0%. Prior Study Comparison: 08/16/2017 Screening Mammogram, [facility]. 08/24/2020 Bilateral Screening Mammogram, [facility]. Tissue Density: There are scattered fibroglandular densities. Findings: Analyzed By CAD. There is no suspicious group of microcalcifications or new suspicious mass in either breast. Overall Assessment: Negative, BI-RAD 1 Management: Screening Mammogram of both breasts in 1 year. 1. Patient should continue monthly self breast exams. 2. A clinical breast exam by your physician is recommended on an annual basis. 3. This exam should not preclude additional follow-up of suspicious palpable abnormalities. Electronically signed and approved by: Alfonso Dhillon M.D. Radiologist
== END | disposition home or self-care (01) ==
LOC: RADMAMWWP 07:45
PROVIDERS: ATTEND Family Medicine
DX: Z12.31 Encounter for screening mammogram for malignant neoplasm of breast (principal); I10 Essential (primary) hypertension
CPT/HCPCS: 77063; 77067; 93975